=== PATIENT | male | born 1955 | race Caucasian/White ===

== ENCOUNTER 2022-04-30 17:59 | Inpatient (IN) | payer MEDICARE ==
[~2022-04-30] VITALS: Ht 185.4 cm; Wt 112.0 kg
[~2022-04-30 17:59] MED LIST: CRANBERRY CONC500 MG PO; DAZIDOX20 MG PO; DETROL LA4 MG PO; FIBERCON625 MG PO; LIORESAL 1010 MG/TAB PO; MEN'S MULTIVITA1 TAB PO; NEURONTIN800 MG/TAB PO; OXYCONTIN ER40 MG PO; SENOKOT8.6 MG
[2022-04-30] MEDS ORDERED: AMOXICILLIN 8751 TAB PO (19:33)
[2022-04-30] MEDS ORDERED: COUMADIN 3MG3 MG/TAB PO ×2 (19:34→23:13)
[2022-04-30] MEDS ORDERED: DAZIDOX10 MG (19:34)
[2022-04-30] MEDS ORDERED: PROTONIX 40MG T40 MG PO (19:35)
[2022-04-30] MEDS ORDERED: MAG-OX 400400 MG/TAB PO (19:35)
[2022-04-30] MEDS ORDERED: RENA-VITE RX1 TAB PO (19:36)
[2022-04-30] MEDS ORDERED: VITAMIN D 50,1.25 MG (19:37)
[2022-04-30] MEDS ORDERED: PROAMATINE 5MG T5 MG PO (19:38)
[2022-04-30] MEDS ORDERED: ZOFRAN 4MG T4 MG/TAB PO (19:38)
[2022-04-30] MEDS ORDERED: MELATONIN5 M1 PO (19:39)
[2022-04-30] MEDS ORDERED: COUMADIN 2MG2 MG/TAB (19:39)
[2022-04-30 20:19] VITALS: BP 101/62; PULSE 86; TEMP 99.9
--- NOTE | 2022-04-30 21:02 | NUR ---
Spoke with Leti at [facility] for labs for patient. Labs to be faxed to surgical fax machine.
[2022-04-30] MEDS ORDERED: ERGOCALCIFER50000 IU PO (22:59)
[2022-04-30] MEDS ORDERED: MYRBETR50MG PO (23:03)
[2022-04-30] MEDS ORDERED: SENOKOT S 50 MG1 TAB PO (23:04)
[2022-04-30] MEDS ORDERED: MULTI VITAMINS1 TAB PO (23:06)
[2022-04-30] MEDS ORDERED: VITAMIN C500 MG PO (23:06)
[2022-04-30] MEDS ORDERED: CRANRX500 MG PO (23:07)
[2022-04-30] MEDS ORDERED: PHARMASSURE ZIN50 MG PO (23:09)
[2022-04-30] MEDS ORDERED: MOTRIN 400400 MG/TAB PO (23:10)
[2022-04-30] MEDS ORDERED: MIRALAX PA17 GM/Dose PO (23:10)
[2022-04-30 23:58] VITALS: BP 106/62; PULSE 89; TEMP 99.7
[2022-05-01] VITALS (9 sets, daily range): BP systolic 17–174; BP diastolic 67–98; PULSE 79–97; TEMP 98.4–99.8
[2022-05-01 00:30] LABS: ALBUMIN 2.5 gm/dL (3.4-4.8); BILIRUBIN,TOTAL 0.6 mg/dL (0.2-1.2); CALCIUM 8.5 mg/dL (8.4-10.2); CREATININE, serum 0.67 mg/dL (0.72-1.25); POTASSIUM 3.6 mmol/L (3.5-4.5); TOTAL PROTEIN 6.2 gm/dL (6.2-8.1)
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
--- NOTE | 2022-05-01 02:29 | NUR ---
Vancomycin Initial Dosing Pharmacy Note Ordering provider: Octavio Buchanan MD Indication/duration: Septic knee X 7 days Relevant comorbidities: LABS: SCr = 0.67 (Capped at 0.8) Recommendation: Will draw troughs and follow levels. Loading dose: 2 grams Maintenance dose: 1.5 grams every 12 hours Trough goal: 15-20 ug/mL
[2022-05-01 06:34] LABS: BASO % 0.3 % (0.0-2.0); EOS # 0.2 K/mm3 (0.0-0.7); EOS % 1.5 % (0.0-4.0); GRAN # 8.1 K/mm3 (1.4-6.5); GRAN % 81.1 % (42.2-75.2); LYMPH # 0.8 K/mm3 (1.2-3.4); LYMPH % 7.8 % (20.0-51.0); MEAN CELL VOLUME 75 fl (80.0-100.0); MEAN CORPUSCULAR HGB CONC 32 g/dl (33.0-37.0); MEAN PLATELET VOLUME 10.4 fl (7.4-10.4); MONO # 0.9 K/mm3 (0.1-0.6); MONO % 8.8 % (1.7-9.3); PLATELET COUNT 314 K/mm3 (130-400); RED BLOOD COUNT 3.96 M/mm3 (4.20-5.60); REDCELL DISTRIBUTION WIDTH-CV 15.2 % (11.5-14.5)
[2022-05-01 06:37] LABS: HEMATOCRIT 29.5 % (42.0-52.0); HEMOGLOBIN 9.3 g/dl (13.5-18.0); MEAN CORPUSCULAR HEMOGLOBIN 23 pg (27-31)
[2022-05-01 06:45] LABS: INR 2.5 (0.8-3.0); PROTHROMBIN TIME 28.9 SECONDS (9.7-12.8)
[2022-05-01 06:47] LABS: CALCIUM 8.4 mg/dL (8.4-10.2); CREATININE, serum 0.64 mg/dL (0.72-1.25); POTASSIUM 3.7 mmol/L (3.5-4.5)
--- NOTE | 2022-05-01 12:07 | NUR ---
CALLED HAIR BALER TO INFORM HER PER INFECTIOUS DISEASE DOCTOR HE IS OFF UNTIL THE April.
--- NOTE | 2022-05-01 12:20 | NUR ---
Initial visit: Tank Furnace Operator stopped by room on rounds. Pt was resting and content with sister in the room. Pt has no needs right now. Tank Furnace Operator prayed with pt and sister. Tank Furnace Operator will follow up as needed.
--- NOTE | 2022-05-01 13:00 | NUR ---
PATIENT ARRIVED FROM PACU IN STABLE CONDITION. NO NEEDS OR COMPLAINTS AT THIS TIME. PATIENT TRANSFERRED TO SPECIALTY BED. ATTEMPTED TO PLACE IT TO DO TURNS, PATIENT REFUSED. MATTRESS IS AIRED UP. SUPRAPUBIC CATHETER RESECURED TO R LEG PER PATIENTS SPECIFIC REQUEST. CALL LIGHT WITH IN REACH. IVF INFUSING. IV ANTX INFUSING. PHARM TO BE CALLED FOR RETIMING.
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
--- NOTE | 2022-05-01 21:02 | NUR ---
Patient A/O, head to toe assessment done, see shift assessment, rates his neck pain at 9/10, oxycodone given, refused to turn at this time and unable to check his bottom, patient said he is comfortable, will try to turn him at midnight as planned, patient agreeable to it, denies further needs, call light and personal items within reach, will continue to monitor.
--- NOTE | 2022-05-01 23:55 | NUR ---
Repositoned patient to his right side, mepilex dressing to bottom clean, dry and intact, will continue to monitor.
[2022-05-02] VITALS (9 sets, daily range): BP systolic 106–172; BP diastolic 62–91; PULSE 73–85; TEMP 97.7–98.9
[2022-05-02 00:38] LABS: COLLECTION METHOD IN
[2022-05-02 00:53] LABS: PH 6.5 (5.0-8.5); URINE APPEARANCE Clear (CLEAR/HAZY); URINE BLOOD TRACE-INTACT (NEGATIVE); URINE COLOR Yellow (YELLOW); URINE GLUCOSE Negative (NEGATIVE); URINE KETONE Negative (NEGATIVE); URINE NITRATE Negative (NEGATIVE); URINE PROTEIN(semi-quant) 1+ (NEGATIVE); URINE UROBILINOGEN 0.2 E.U/dL (0.2-1.0)
[2022-05-02 00:56] LABS: MUCOUS Present (NOT PRESENT); SQUAMOUS EPITHELIAL None Seen /hpf (0-10); URINE BACTERIA Rare /hpf (NONE SEEN); URINE RBC 20-50 /hpf (0-2)
--- NOTE | 2022-05-02 03:24 | NUR ---
Called Cami, the PA for gram positive cocci, no new orders received at this time.
--- NOTE | 2022-05-02 03:43 | NUR ---
Repositioned patient to his left side, dressing changed with aquacel, gauze and mepilex, noted scant amount of drainage.
--- NOTE | 2022-05-02 06:18 | NUR ---
Patient repositioned to his left side, denies further needs, will report off to dayshift nurse.
[2022-05-02 09:23] LABS: INR 2.6 (0.8-3.0); PROTHROMBIN TIME 30.7 SECONDS (9.7-12.8)
--- NOTE | 2022-05-02 11:40 | NUR ---
PATIENTS WOULD DRESSING REMOVED FOR MRI.
--- NOTE | 2022-05-02 12:30 | NUR ---
PATIENT BACK FROM MRI. NAZANINTENT IS AWAKE AND ALERT, DENEIS ANY PAIN. BED BATH AND CATH CARE PROVIDED, LINENS CHANGED, WOUND CARE AND DRESSINGS PROVIDED. PICC LINE PATENT.
--- NOTE | 2022-05-02 20:15 | NUR ---
Patient assessed at this time, head to toe assessment done, see shift assessment, denies pain, called Isak Vick at 2031 d/t patient's blood pressure is high, received a PRN order for hydralazine, repositioned to his left at this time, denies further needs, call light and personal items within reach, will continue to monitor.
[2022-05-03] VITALS (7 sets, daily range): BP systolic 92–179; BP diastolic 57–95; PULSE 66–88; TEMP 97.6–98.4
--- NOTE | 2022-05-03 00:21 | NUR ---
Patient's BP is 179/93, apresoline given as ordered PRN, repositioned patient to his right side, IV antibiotics given at this time as well through his PICC line, both lumens flushes well with good blood return.
--- NOTE | 2022-05-03 01:45 | NUR ---
Nava, the PA made aware about the MRI of pelvis result.
--- NOTE | 2022-05-03 02:45 | NUR ---
Repositioned patient to his left side, denies further needs.
--- NOTE | 2022-05-03 05:03 | NUR ---
Repositioned patient to his right side.
--- NOTE | 2022-05-03 08:15 | NUR ---
PATIENT AWAKE AND ALERT, RESTING IN BED. COLOSTOMY BAG AND WAFER CHANGED OUT TO PATIENTS SATISFACTION. PATIENT DENEIS ANY OTHER NEEDS OR COMPLAINTS AT THIS TIME. IV ANTX HUNG BY NIGHT RN INFUSING. OTHER LINE OF PICC PATENT. CALL LIGHT WITHIN REACH. SUPERPUBIC CATHETER IN PLACE. PATIENTS SISTER AT BEDSIDE.
[2022-05-03 11:04] LABS: MEAN CELL VOLUME 75 fl (80.0-100.0); MEAN CORPUSCULAR HGB CONC 31 g/dl (33.0-37.0); MEAN PLATELET VOLUME 9.1 fl (7.4-10.4); PLATELET COUNT 398 K/mm3 (130-400); RED BLOOD COUNT 3.87 M/mm3 (4.20-5.60); REDCELL DISTRIBUTION WIDTH-CV 15.2 % (11.5-14.5)
[2022-05-03 11:08] LABS: CALCIUM 8.5 mg/dL (8.4-10.2); CREATININE, serum 0.68 mg/dL (0.72-1.25); POTASSIUM 3.3 mmol/L (3.5-4.5)
[2022-05-03 11:15] LABS: HEMOGLOBIN 9.1 g/dl (13.5-18.0); MEAN CORPUSCULAR HEMOGLOBIN 24 pg (27-31)
--- NOTE | 2022-05-03 16:27 | NUR ---
[facility] CONTACTED AND ARE TO FAX OVER PATIENTS CULTURE RESULTS FROM [facility].
--- NOTE | 2022-05-03 16:49 | NUR ---
FURMAN FAXED RESULTS FROM [facility]. DR LAZARO NOTIFIED RESULTS ON CHART.
--- NOTE | 2022-05-03 18:30 | NUR ---
PATIENT AWAKE AND ALERT, RESTING IN BED. THIS RN SET UP PATIENT FOR DINNER. COLOSTOMY BAG AND WAFER WERE CHANGED. CATHETER CARE PROVIDED FOR PATIENTS SUPRABUBIC CATHETER. PATIENT REPOSITIONED. PATIENT DENEIS ANY FURTHER NEEDS OR COMPLAINTS AT THIS TIME.
--- NOTE | 2022-05-03 20:42 | NUR ---
Patient assessed at this time, see shift assessment, denies pain or discomfort at this time, HS meds given, denies further needs, call light and personal items within reach, will continue to monitor.
[2022-05-04] VITALS (7 sets, daily range): BP systolic 134–187; BP diastolic 78–98; PULSE 60–80; TEMP 97.6–98.4
--- NOTE | 2022-05-04 | NUR ---
Repositioned patient to his left side.
--- NOTE | 2022-05-04 10:39 | NUR ---
Patient resting in bed awake and family members at the bedside. Duane wrap dressing on right knee intact. Suprapubic catheter draining yellow urine in bag. Colostomy intact with air in bag. Deflated some air from the bag. Dressing changed at sacral area , am care given, linens changed and repositioned patient to the left side.
[2022-05-05] VITALS: BP 159/85; PULSE 88; TEMP 97.7
--- NOTE | 2022-05-05 00:19 | NUR ---
THIS NURSE IN TO DO SHIFT ASSESSMENT ON PATIENT. PATIENT APPEARS TO VERY DROWSY AND WAKES UP BUT IMMEDIATELY FALLS BACK TO SLEEP. THIS NURSE ATTEMPTED TO GIVE PATIENT HIS ORAL MEDICATIONS BUT PATIENT TO DROWSY TO TAKE MEDICATIONS. PATIENT REPOSITIONED AT THIS TIME AND WOUNDS ASSESSED. PATIENT ABLE TO DENY PAIN AT THIS TIME. NO FURTHER QUESTIONS OR CONCERNS FROM PATIENT. CALL LIGHT WITHIN REACH
[2022-05-05 04:01] VITALS: BP 165/90; PULSE 84; TEMP 97.9
[2022-05-05 06:38] LABS: INR 3.7 (0.8-3.0); PROTHROMBIN TIME 42.7 SECONDS (9.7-12.8)
[2022-05-05 07:30] VITALS: BP 168/87; PULSE 73; TEMP 97.8
--- NOTE | 2022-05-05 08:00 | NUR ---
Pt. laying in bed at this time. Pt. is less responsive this am. Pt.'s sister at bedside. Pt. is very drowsey, will open eyes and speak to this nurse but does not answer questions at all. Pt. does repeat "I'm Ronny, I'm Ronny" Pt. at this time does not respond to his sister either. Dr. Buchanan notified, new orders in. Will continue to monitor.
[2022-05-05 12:00] VITALS: BP 155/92; PULSE 85; TEMP 97
[2022-05-05 13:44] LABS: BASO % 0.3 % (0.0-2.0); EOS # 0.3 K/mm3 (0.0-0.7); GRAN # 11.1 K/mm3 (1.4-6.5); GRAN % 83.4 % (42.2-75.2); LYMPH # 0.9 K/mm3 (1.2-3.4); MEAN CELL VOLUME 76 fl (80.0-100.0); MEAN CORPUSCULAR HGB CONC 31 g/dl (33.0-37.0); MEAN PLATELET VOLUME 9.1 fl (7.4-10.4); MONO # 0.9 K/mm3 (0.1-0.6); MONO % 6.7 % (1.7-9.3); PLATELET COUNT 431 K/mm3 (130-400); RED BLOOD COUNT 3.89 M/mm3 (4.20-5.60); REDCELL DISTRIBUTION WIDTH-CV 15.8 % (11.5-14.5)
[2022-05-05 13:45] LABS: HEMATOCRIT 29.6 % (42.0-52.0); HEMOGLOBIN 9.1 g/dl (13.5-18.0); MEAN CORPUSCULAR HEMOGLOBIN 23 pg (27-31)
[2022-05-05 13:52] LABS: CREATININE, serum 1.88 mg/dL (0.72-1.25); POTASSIUM 3.4 mmol/L (3.5-4.5)
[2022-05-05 15:51] VITALS: BP 161/94; PULSE 66; TEMP 97
--- NOTE | 2022-05-05 16:30 | NUR ---
Patient scheduled telehealth visit with Dr. No, Infectious Disease. Pt consents to visit. Pts sister in the room during visit, pts spouse on the phone talking with Dr. No. Equipment set up, audio and video connections established. Visit conducted by . No technical concerns or issues.
--- NOTE | 2022-05-05 16:55 | NUR ---
Holter Technician spoke with Hospitalist who advised patient will likely need IV antibiotics at time of discharge. FLAKO contacted patient's , Ayana who advised patient is not doing as well today and was likely not able to be discharged. Ayana is on her way from [place] and will arrive at the hospital this evening. Ayana advised they have done home antibiotics in the past. FLAKO spoke with RN who advised patient is not alert and oriented, which is a change for him. Patient will not discharge today. SW was approached by patient's sister in law who has been at bedside until Ayana can arrive. MELODIE advised they would like to use [facility] at discharge for any IV antibiotic needs. FLAKO was contacted by Bill at [facility] (ph#[phone]) who requested records. FLAKO to send tomorrow.
--- NOTE | 2022-05-05 17:45 | NUR ---
Suprapubic wilson catheter changed out at this time per protocol.
[2022-05-05 20:30] VITALS: BP 147/88; PULSE 78; TEMP 97.7
--- NOTE | 2022-05-05 22:53 | NUR ---
THIS NURSE IN TO DO SHIFT ASSESSMENT AND NIGHT TIME MEDICATION ON PATIENT. PATIENT APPEARS DROWSY BUT EASILY AWAKENED. PATIENT ORIENTATED TO SELF AT THIS TIME. WHEN ASKED IF PATIENT KNEW IF HE WAS IN THE HOSPITAL PATIENT RESPONDED WITH YES. THIS NURSE ASKED PATIENT TO TAKE HIS ORAL NIGHT TIME MEDICATION. PATIENT RESPONDED WITH YES MA'AM BUT WOULD MOVE WHEN ATTEMPED TO GIVE PATIENT HIS MEDS. PATIENT UNABLE TO TAKE MEDICATIONS AT THIS TIME. NO FURTHER QUESTIONS OR CONCERNS NOTED AT THIS TIME. CALL LIGHT WITHIN REACH
[2022-05-06] VITALS (8 sets, daily range): BP systolic 115–174; BP diastolic 66–99; PULSE 64–93; TEMP 97.3–98.2
[2022-05-06 05:23] LABS: BASO # 0.1 K/mm3 (0.0-0.2); BASO % 0.4 % (0.0-2.0); EOS # 0.3 K/mm3 (0.0-0.7); EOS % 2.2 % (0.0-4.0); GRAN # 12.5 K/mm3 (1.4-6.5); GRAN % 84.1 % (42.2-75.2); LYMPH # 0.9 K/mm3 (1.2-3.4); LYMPH % 6.2 % (20.0-51.0); MEAN CELL VOLUME 77 fl (80.0-100.0); MEAN CORPUSCULAR HGB CONC 30 g/dl (33.0-37.0); MEAN PLATELET VOLUME 8.9 fl (7.4-10.4); MONO # 0.9 K/mm3 (0.1-0.6); MONO % 6.2 % (1.7-9.3); PLATELET COUNT 381 K/mm3 (130-400); REDCELL DISTRIBUTION WIDTH-CV 15.9 % (11.5-14.5)
[2022-05-06 05:24] LABS: INR 4.1 (0.8-3.0)
[2022-05-06 05:34] LABS: HEMATOCRIT 29.2 % (42.0-52.0); HEMOGLOBIN 8.8 g/dl (13.5-18.0); MEAN CORPUSCULAR HEMOGLOBIN 23 pg (27-31)
[2022-05-06 05:35] LABS: ALBUMIN 2.4 gm/dL (3.4-4.8); CALCIUM 8.2 mg/dL (8.4-10.2); CREATININE, serum 2.61 mg/dL (0.72-1.25); MAGNESIUM 2.1 mg/dL (1.6-2.6); PHOSPHOROUS 4.4 mg/dL (2.3-4.7); POTASSIUM 3.2 mmol/L (3.5-4.5)
--- NOTE | 2022-05-06 09:00 | NUR ---
Pt. laying in bed. at bedside. Pt. continues to be confused. PICC to lt. upper arm, IV fluids infusing per orders. Pt. and deny needs at this time. Call light within reach.
--- NOTE | 2022-05-06 10:11 | NUR ---
Assessment completed. Patient alert but not oriented. Patient breath sounds clear in all perea. Heart rate is regular sinus on telemetry. Patient hypertensive this morning with blood pressure of 174/99, primary RN able to give prn medication. Blood pressure rechecked at 0900 read 164/98. Left upper arm PICC site clean, dry and intact axel wrapped. Colostomy clean, intact with loose stool present. Suprapubic cath insertion site clean with no drainage or reddening. AXEL wrap to right knee clean, dry and intact. Right foot non-pitting edema. Feet dry and flaky. SCDs and compression socks on. Boots on feet to elevate heels off bed. Patient unable to take medications this morning due to anxious state. Head of Bed semi-fowlers
--- NOTE | 2022-05-06 15:50 | NUR ---
Telehealth visit conducted with Dr. Irwin No, Infectious Disease. Patient consented unable to consent due to condition. present and consented. Had previous discussion with Dr. No via telephone. Telecommunication initiated without any difficulties during exam. All questions were answered by Dr. No
--- NOTE | 2022-05-06 16:31 | NUR ---
Selling Underwriter faxed referral to [facility].
--- NOTE | 2022-05-06 17:32 | NUR ---
Pt. continues to be minimally responsive. Pt. will respond to voice, but does not respond appropriatly. Vitals stable. Abxs infusing per orders. Pt. resting comfortably, respirations are equal and unlabored
[2022-05-06 19:46] LABS: CLOSTRIDIUM DIFF A/B NEG
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
[2022-05-07 04:06] VITALS: BP 118/65; PULSE 75; TEMP 98.3
[2022-05-07 04:52] LABS: BASO % 0.2 % (0.0-2.0); EOS # 0.3 K/mm3 (0.0-0.7); EOS % 2.1 % (0.0-4.0); GRAN # 10.5 K/mm3 (1.4-6.5); GRAN % 83.3 % (42.2-75.2); LYMPH % 8.2 % (20.0-51.0); MEAN CELL VOLUME 77 fl (80.0-100.0); MEAN CORPUSCULAR HGB CONC 30 g/dl (33.0-37.0); MEAN PLATELET VOLUME 8.8 fl (7.4-10.4); MONO # 0.7 K/mm3 (0.1-0.6); MONO % 5.4 % (1.7-9.3); PLATELET COUNT 322 K/mm3 (130-400); RED BLOOD COUNT 3.15 M/mm3 (4.20-5.60)
[2022-05-07 05:03] LABS: HEMATOCRIT 24.3 % (42.0-52.0); HEMOGLOBIN 7.3 g/dl (13.5-18.0); MEAN CORPUSCULAR HEMOGLOBIN 23 pg (27-31)
[2022-05-07 05:15] LABS: INR 5.1 (0.8-3.0); PROTHROMBIN TIME 59.2 SECONDS (9.7-12.8)
[2022-05-07 05:17] LABS: ALBUMIN 1.9 gm/dL (3.4-4.8); CALCIUM 7.1 mg/dL (8.4-10.2); CREATININE, serum 2.85 mg/dL (0.72-1.25); MAGNESIUM 1.8 mg/dL (1.6-2.6); PHOSPHOROUS 4.1 mg/dL (2.3-4.7)
--- NOTE | 2022-05-07 05:17 | NUR ---
CALLED CRITICAL INR OF 5.1, PT OF 59.2 AND HGB OF 7.3 TO HOSPITALIST WHO WILL REVIEW CHART AND ENTER ORDERS ACCORDINGLY.
[2022-05-07 05:28] LABS: POTASSIUM 2.9 mmol/L (3.5-4.5)
--- NOTE | 2022-05-07 05:30 | NUR ---
K+ OF 2.9, HOSPITALIST AWARE, IV POTASSIUM GIVEN PER PROTOCOL. SEE ADDITIONAL ORDERS FOR LAB RECHECK
[2022-05-07 07:35] VITALS: BP 133/74; PULSE 74; TEMP 97.4
--- NOTE | 2022-05-07 09:43 | NUR ---
Pt. given Aqua-Mephyton, started at 0933. This nurse remained at bedside during infusion. No s/s of reaction noted, Vitals stable.
--- NOTE | 2022-05-07 10:01 | NUR ---
Patient assessment completed. Patient alert but not orientated. Patien verbal communication declining. Patient heart rate normal at 74bpm. Patient breath sounds clear in all perea. Patient still very anxious this morning and refusing to take medication and oral intake of fluids and food. PICC to left upper arm infusing with normal saline solution at 100ml/hr. PICC clear with no drainage or reddness axel wrapped. Left hand edema non-pitting, elevated on pillow. Bowel sounds active in all 4 quadrants. Colostomy clean and intact, loose stools. Suprapubic cath clean with no reddening or drainage, cath care provided. AXEL wrap to Right Knee still clean, dry and intact, incision has no redness or drainage. Right foot non-pitting edema. Right leg elevated to relieve pressure. Patient called out pain informed primary RN, when attempted to administer patient refused medication. Patient head of bed semi fowlers with legs raised.
[2022-05-07 10:30] LABS: HEMATOCRIT 25.6 % (42.0-52.0); HEMOGLOBIN 7.8 g/dl (13.5-18.0)
[2022-05-07 11:00] VITALS: BP 122/69; PULSE 73; TEMP 97
[2022-05-07 11:44] LABS: POTASSIUM 3.2 mmol/L (3.5-4.5)
[2022-05-07 11:56] LABS: CALCIUM 7.3 mg/dL (8.4-10.2); CREATININE, serum 2.89 mg/dL (0.72-1.25); PHOSPHOROUS 4.2 mg/dL (2.3-4.7)
--- NOTE | 2022-05-07 13:20 | NUR ---
Certified Wellness Program Manager spoke with Hospitalist who advised he spoke with patient and his , Ayana about goals of care and possible referral to [facility]. Ayana to think on this and discuss with family and Hospitalist will follow up tomorrow.
--- NOTE | 2022-05-07 16:20 | NUR ---
Patient scheduled telehealth visit with Dr. No, Infectious Disease, pt unable to give consent. present in room to give consent. Equipment set up, audio and video connections established. Visit conducted by MD. No technical concerns or issues. All questions asked by and answered by Dr. No. Nurse present in room to answer questions.
[2022-05-07 16:46] VITALS: BP 117/77; PULSE 68; TEMP 98.3
[2022-05-07 17:47] LABS: INR 2.1 (0.8-3.0)
[2022-05-07 19:29] VITALS: BP 128/67; PULSE 93; TEMP 97.7
--- NOTE | 2022-05-07 23:09 | NUR ---
PATIENT ASSESSED AND GIVEN NIGHTLY IV MEDICATIONS, HE IS UNABLE TO SWALLOW WATER LET ALONE MEDICATIONS. SUPRAPUBIC CATHETER IN PLACE WITH MINIMAL OUTPUT. COLOSTOMY WITH LITTLE TO NO OUTPUT BUT IS LOOSE IN NATURE. PT/OT/ST ORDERED. FAMILY DISCUSSING AGGRESSIVE CARE VERSUS PALLIATIVE/HOSPICE ROUTE. PICC IN PAT FLUSHES AND HAD BLOOD RETURN IN BOTH LUMENS. MULTIPLE DIFFERENT WOUNDS NOTED, SEE ASSESSMENT. D5 1/2 NS @75ML/HR. CREA-2.89. K-3.8. BED IN LOWEST POSITION. CALL LIGHT IN REACH.
[2022-05-08 00:01] VITALS: BP 137/77; PULSE 92; TEMP 98
[2022-05-08 03:44] VITALS: BP 106/73; PULSE 86; TEMP 98.6
[2022-05-08 07:15] VITALS: BP 137/77; PULSE 89; TEMP 98
[2022-05-08 07:23] LABS: BASO % 0.2 % (0.0-2.0); EOS # 0.2 K/mm3 (0.0-0.7); GRAN # 14.8 K/mm3 (1.4-6.5); GRAN % 87.1 % (42.2-75.2); LYMPH # 0.9 K/mm3 (1.2-3.4); LYMPH % 5.2 % (20.0-51.0); MEAN CELL VOLUME 75 fl (80.0-100.0); MEAN CORPUSCULAR HGB CONC 31 g/dl (33.0-37.0); MEAN PLATELET VOLUME 8.8 fl (7.4-10.4); MONO # 0.9 K/mm3 (0.1-0.6); MONO % 5.4 % (1.7-9.3); PLATELET COUNT 385 K/mm3 (130-400); RED BLOOD COUNT 3.68 M/mm3 (4.20-5.60)
[2022-05-08 07:28] LABS: HEMATOCRIT 27.6 % (42.0-52.0); HEMOGLOBIN 8.6 g/dl (13.5-18.0); MEAN CORPUSCULAR HEMOGLOBIN 23 pg (27-31)
[2022-05-08 07:29] LABS: INR 1.4 (0.8-3.0); PROTHROMBIN TIME 15.8 SECONDS (9.7-12.8)
--- NOTE | 2022-05-08 07:30 | NUR ---
24 HOUR URINE BEGAN. PATIENT RESTING IN BED. PATIETN OPENED EYES TO HIS NAME. PATIENT MAKING SOME NOISES, NO VERBAL RESPONSE TO QUESTIONS. SHALLOWED BREATHS. PATIENTS SUPRAPUBIC CATH AND COLOSTOMY PATENT. IVF INFUSING PER ORDER, PICC LINE PATENT.
[2022-05-08 07:36] LABS: ALBUMIN 2.1 gm/dL (3.4-4.8); CREATININE, serum 3.5 mg/dL (0.72-1.25); MAGNESIUM 1.9 mg/dL (1.6-2.6); PHOSPHOROUS 3.9 mg/dL (2.3-4.7); POTASSIUM 3.3 mmol/L (3.5-4.5)
[2022-05-08 11:42] VITALS: BP 161/87; PULSE 90; TEMP 97.5
--- NOTE | 2022-05-08 12:02 | NUR ---
PATIENT RESTING IN BED. OPENS EYES TO NAME. DRESSING CHANGE COMPLETE. PATIETN REPOSITIONED. SUPRAPUBIC CATH BAG AND JUG STILL ON ICE. CALL LIGHT WITHIN REACH. FAMILY AT BEDSIDE.
--- NOTE | 2022-05-08 12:46 | NUR ---
Blanket Binder collaborated with Hospitalist who advised patient's , Ayana would like to speak with the [facility] about potential discharge there. Plan for now is to continue with care, however is interested in hospice for discharge planning. FLAKO met with Ayana and confirmed the above. Ayana would like to speak with the [facility] about their facility and also wanted information about home hospice as an alternative option. FLAKO contacted Orlin at [facility] and gave referral. Orlin to reach out to Ayana today.
--- NOTE | 2022-05-08 14:00 | NUR ---
Telehealth visit conducted with Dr. Irwin No, Infectious Disease. Service Order Dispatcher initiated without any difficulties during exam. Patients nurse present to assist with questions from Dr. No. All questions were answered by Dr. No.
[2022-05-08 16:00] VITALS: BP 130/79; PULSE 72; TEMP 97.9
--- NOTE | 2022-05-08 19:24 | NUR ---
RECEIVED CHANGE OF SHIFT REPORT FROM DAY SHIFT RN.
[2022-05-08 19:36] VITALS: BP 132/72; PULSE 75; TEMP 97.5
--- NOTE | 2022-05-08 22:45 | NUR ---
PATIENT ONLY TOLERATED1 SMALL SPOONFUL OF MED WITH APPLESAUCE THEN REFUSED TO TAKE ANY MORE ORAL INTAKE THEN OBSERVED PATIENT DRY HEAVING WITH PATIENT CALLING OUT "I DON'T WANT TO", SEE MAR FOR MEDS GIVEN TO NAUSEA, SET UP ORAL SUCTION WITH PATIENT ATTEMPTING TO VOMIT MEDS WERE GIVEN. PATIENT DID NOT VOMIT BUT LEFT ORAL SUCTION SET UP IN PLACE PROPHYLACTICALLY
[2022-05-09 00:53] VITALS: BP 114/58; PULSE 85; TEMP 97.8
[2022-05-09 04:44] VITALS: BP 122/65; PULSE 70; TEMP 98.6
[2022-05-09 06:11] LABS: BASO % 0.3 % (0.0-2.0); EOS # 0.3 K/mm3 (0.0-0.7); GRAN # 13.2 K/mm3 (1.4-6.5); GRAN % 85.5 % (42.2-75.2); LYMPH # 0.9 K/mm3 (1.2-3.4); LYMPH % 5.7 % (20.0-51.0); MEAN CELL VOLUME 75 fl (80.0-100.0); MEAN CORPUSCULAR HGB CONC 31 g/dl (33.0-37.0); MEAN PLATELET VOLUME 9.2 fl (7.4-10.4); MONO # 0.8 K/mm3 (0.1-0.6); MONO % 5.4 % (1.7-9.3); PLATELET COUNT 325 K/mm3 (130-400); RED BLOOD COUNT 3.57 M/mm3 (4.20-5.60); REDCELL DISTRIBUTION WIDTH-CV 16.2 % (11.5-14.5)
[2022-05-09 06:14] LABS: HEMATOCRIT 26.7 % (42.0-52.0); HEMOGLOBIN 8.3 g/dl (13.5-18.0); MEAN CORPUSCULAR HEMOGLOBIN 23 pg (27-31)
[2022-05-09 06:22] LABS: CREATININE, serum 3.41 mg/dL (0.72-1.25); MAGNESIUM 1.8 mg/dL (1.6-2.6); PHOSPHOROUS 3.6 mg/dL (2.3-4.7); POTASSIUM 3.2 mmol/L (3.5-4.5)
--- NOTE | 2022-05-09 07:12 | NUR ---
CHANGE OF SHIFT REPORT GIVEN TO DAY SHIFT RNLORI.
--- NOTE | 2022-05-09 07:18 | NUR ---
Received shift report from the night nurse, Kimmy ALTMAN and resume care.
[2022-05-09 07:42] VITALS: BP 136/86; PULSE 68; TEMP 98.6
[2022-05-09 08:16] LABS: URINE TOTAL VOLUME - 24 HRS 1425 mL/24 hr
[2022-05-09 08:17] LABS: CREATININE, serum 3.41 mg/dL (0.72-1.25)
[2022-05-09 08:38] LABS: PROTEIN, TOTAL URINE random 18 mg/dL
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
--- NOTE | 2022-05-09 12:54 | NUR ---
Warfarin Initial Dosing Pharmacy Note Ordering Provider: Octavio Buchanan MD Indication: VTE/PE Treatment LABS: INR 1.4 Recommendation: Will start Warfarin 4 mg po qHS. Pharmacy will continue to closely monitor daily INR levels. Home Regimen: Warfarin 6 mg po [id number] and Warfarin 3 mg po Fr
[2022-05-09 13:32] VITALS: BP 105/53; PULSE 76; TEMP 98.1
--- NOTE | 2022-05-09 13:41 | NUR ---
This nurse was notified that patient is experiencing chest pain. Nurse attened to patient , VSS O2 sat 98% RA. Patient alert and able to talk. Patient not in any distress, not diaphoretic, or clammy. Dr. Montoya was notified and came to assess patient. EKG and chest X-ray per orders. Family at the bedside.
[2022-05-09 15:39] VITALS: BP 92/62; PULSE 75; TEMP 97
--- NOTE | 2022-05-09 15:56 | NUR ---
Patient reports of severe neck pain, roxicodone administered at 1545. See e-mar notes.
--- NOTE | 2022-05-09 16:24 | NUR ---
Solderer Dipper spoke with patient's , Ayana who advised patient has made improvements over last 24 hours, which has changed the plan of care. Patient is no longer seeking hospice, but wants to continue aggressive cares. Ayana advised patient has been to [facility] in the past and that would be their first preference for LTACH. FLAKO faxed referral to [facility]. [facility] #[phone] ext [phone] fax#[phone]
[2022-05-09 19:42] VITALS: BP 123/72; PULSE 100; TEMP 98.5
--- NOTE | 2022-05-09 20:50 | NUR ---
Patient assessed at this time, head to toe assessment done, see shift assessmenyt, able to tell his date of and where he is, unable to tell the date and time, HS meds given crushed with apple sauce without any problem, dressing to coccyx CDI, left posterior thigh dressign CDI, with colostomy bag and suprapubic catheter draining well, denies pain, denies further needs at this time, call light and personal items within reach, will continue to monitor.
--- NOTE | 2022-05-09 22:22 | NUR ---
Patient complained of neck and head pain, rated it as 9/10, oxycodone given as ordered, repositioned patient on his right side, needs attended, will continue to monitor.
[2022-05-10] VITALS (10 sets, daily range): BP systolic 92–116; BP diastolic 49–72; PULSE 43–71; TEMP 96.3–98.6
--- NOTE | 2022-05-10 02:48 | NUR ---
Repositioned patient to his left side, IV merrem given at this time.
--- NOTE | 2022-05-10 04:50 | NUR ---
Patient continues to be confused, he said "i wanna know her name", this nurse reorientated the patient, respirations even and unlabored, will continue to monitor.
--- NOTE | 2022-05-10 05:50 | NUR ---
Patient complained of headache, oxycodone given, offered ice pack but refused, will continue to monitor.
[2022-05-10 06:37] LABS: BASO % 0.2 % (0.0-2.0); EOS # 0.4 K/mm3 (0.0-0.7); EOS % 3.3 % (0.0-4.0); GRAN # 10.2 K/mm3 (1.4-6.5); GRAN % 81.7 % (42.2-75.2); LYMPH % 8.3 % (20.0-51.0); MEAN CELL VOLUME 76 fl (80.0-100.0); MEAN CORPUSCULAR HGB CONC 30 g/dl (33.0-37.0); MEAN PLATELET VOLUME 9.7 fl (7.4-10.4); MONO # 0.7 K/mm3 (0.1-0.6); MONO % 5.4 % (1.7-9.3); PLATELET COUNT 283 K/mm3 (130-400); RED BLOOD COUNT 3.32 M/mm3 (4.20-5.60); REDCELL DISTRIBUTION WIDTH-CV 16.4 % (11.5-14.5)
[2022-05-10 06:39] LABS: INR 1.5 (0.8-3.0); PROTHROMBIN TIME 17.5 SECONDS (9.7-12.8)
[2022-05-10 06:40] LABS: HEMATOCRIT 25.2 % (42.0-52.0); HEMOGLOBIN 7.5 g/dl (13.5-18.0); MEAN CORPUSCULAR HEMOGLOBIN 23 pg (27-31)
[2022-05-10 06:49] LABS: ALBUMIN 1.9 gm/dL (3.4-4.8); C-REACTIVE PROTEIN 5.66 mg/dL (0.00-0.50); CREATININE, serum 3.2 mg/dL (0.72-1.25); MAGNESIUM 1.7 mg/dL (1.6-2.6); PHOSPHOROUS 3.5 mg/dL (2.3-4.7); POTASSIUM 3.2 mmol/L (3.5-4.5)
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
--- NOTE | 2022-05-10 12:09 | NUR ---
Ancient Art Curator rounds: Ancient Art Curator visit attempted; however there appeared to be three visitors with Patient. No Ancient Art Curator visit completed.
--- NOTE | 2022-05-10 16:10 | NUR ---
PATIENT'S FAMILY OUT AT THE DESK FREQUENTLY TODAY. FAMILY NOW AT DESK STATING PATIENT REPORTS HE "CAN'T BREATH". 02 SATS OF 97% ON RA. HR IN 60'S ON TELE. UPON ASSESSMENT PATIENT SEEMS TO BE HAVING ANXIETY, FAMILY AGREES. PATIENT REPEATS HIMSELF OVER AND OVER WHEN HE GETS FIXATED ON SOMETHING. PATIENT WANTING PAIN PILLS BUT IS NEARLY 2 HOURS EARLY. NURSING OFFERED SEVERAL OTHER PAIN RELIEVING OPTIONS SUCH ICE OR HEAT, REPOSITIONING, OR WARM BLANKET. PATIENT REFUSING EVERYTHING OFFERED BY NURSING OF FAMILY. PROVIDER NOTIFIED. PROVIDER CONFIRMED PATIENT HAD A SIMILAR EPISODE YESTERDAY WITH A COMPLETE WORK-UP THAT WAS NEGATIVE. PATIENT IS ALSO STRUGGLING WITH SOFT B/P AND BRADYCARDIA LIMITING OPTIONS FOR ANXIETY MEDS. PATIENT ALSO HAS ELEVATED RENAL LABS. NO NEW ORDERS GIVEN BY PROVIDER. PATIENT ONLY ABLE TO GET SCHEDULED BACLOFEN TILL ITS TIME FOR NARCOTICS AGAIN.
--- NOTE | 2022-05-10 16:30 | NUR ---
FAMILY LEAVING FOR A WHILE.
--- NOTE | 2022-05-10 20:17 | NUR ---
Patient alert and oriented x2, knows his date of and knows he is in the hospital, head to toe assessment done at this time, see shift assessment, HS meds crushed with apple sauce without any difficulty, SCD's and MARIANNE's on, needs attended, denies further needs, call light and personal items within reach, will continue to monitor.
--- NOTE | 2022-05-10 23:04 | NUR ---
Patient repositioned to his right side.
--- NOTE | 2022-05-10 23:29 | NUR ---
Patient called with complaints of pain, he verbalized "I'm hurting everywhere", this nurse went into his romm and he said "You are killing me", I'm hurting", oxycodone given at this time to alleviate his pain, will continue to monitor.
[2022-05-11 03:42] VITALS: BP 121/74; PULSE 67; TEMP 99.1
--- NOTE | 2022-05-11 04:24 | NUR ---
Repositioned patient to his left side, took some sips of water at this time.
[2022-05-11 06:31] LABS: CREATININE, serum 2.96 mg/dL (0.72-1.25); POTASSIUM 3.6 mmol/L (3.5-4.5)
[2022-05-11 07:42] VITALS: BP 124/63; PULSE 85; TEMP 98.3
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
[2022-05-11 08:26] LABS: INR 1.8 (0.8-3.0); PROTHROMBIN TIME 20.3 SECONDS (9.7-12.8)
[2022-05-11 12:18] VITALS: BP 112/57; PULSE 60; TEMP 97.9
--- NOTE | 2022-05-11 13:43 | NUR ---
PATIENT UNABLE TO FOLLOW VERBAL COMMANDS THE LAST TWO DAYS WITH EDUCATION/USE OF I.S. PATIENT REFUSES
[2022-05-11 15:04] VITALS: BP 105/60; PULSE 58; TEMP 97.5
--- NOTE | 2022-05-11 17:50 | NUR ---
PRESSURE ULCERS, SEE SHIFT ASSESSMENT, DSG'S CHANGED.
[2022-05-11 19:09] VITALS: BP 106/82; PULSE 63; TEMP 98.7
[2022-05-11 23:41] VITALS: BP 100/60; PULSE 60; TEMP 97.5
[2022-05-12] VITALS (7 sets, daily range): BP systolic 100–131; BP diastolic 65–104; PULSE 61–73; TEMP 97.2–97.8
[2022-05-12 06:24] LABS: BASO % 0.2 % (0.0-2.0); EOS # 0.3 K/mm3 (0.0-0.7); EOS % 2.1 % (0.0-4.0); GRAN # 10.8 K/mm3 (1.4-6.5); LYMPH # 1.1 K/mm3 (1.2-3.4); LYMPH % 8.3 % (20.0-51.0); MEAN CELL VOLUME 77 fl (80.0-100.0); MEAN CORPUSCULAR HGB CONC 30 g/dl (33.0-37.0); MEAN PLATELET VOLUME 10.6 fl (7.4-10.4); MONO # 0.7 K/mm3 (0.1-0.6); MONO % 5.4 % (1.7-9.3); PLATELET COUNT 233 K/mm3 (130-400); RED BLOOD COUNT 3.37 M/mm3 (4.20-5.60); REDCELL DISTRIBUTION WIDTH-CV 16.7 % (11.5-14.5)
--- NOTE | 2022-05-12 06:27 | NUR ---
THE PATIENT HAD A VERY EVENTFUL NIGHT. THE PATIENTS VITAL SIGNS WERE STABLE AND THE PATIENT WAS STABLE OVERNIGHT. PT REMAINED ALERT AND ORIENTED TO SELF ALL NIGHT. HOWEVER PATIENT HAD SEVERAL PERIODS OF CONFUSION AND USED THE CALL LIGHT HUNDREDS AND HUNDREDS OF TIMES OVERNIGHT CALLING OUT FOR VARIOUS THINGS. SUCH , HIS HEAD HURTING EVEN THOUGH JUST RECEIVING PAIN MEDICATION AND REFUSING TO ALLOW THE MEDICATION TIME TO KICK IN, PILLOWS BEING FLUFFED WHEN THEY WERE JUST FLUFFED, OSTOMY BACK TO BE EMPTIED WHEN IT JUST HAD PREVIOUSLY BEEN EMPTIED, UNABLE TO BREATH WHEN ASSESSMENT WAS NEGATIVE OXYGEN SATURATIONS 100% ON ROOM AIR AND THE PATIENT TALKING CLEARLY WITHOUT STRUGGLING AT ALL. PT REFUSED REDIRECTION AND STILL CONTINUED TO PUSHED THE CALL LIGHT REPEATEDLY EVEN WHEN TOLD THAT SOMEONE WOULD BE IN THE ROOM SHORTLY THE PATIENT WOULD PUSH THE CALL LIGHT SEVERAL TIMES IN A MINUTE. PT WAS VERY DIFFICULT TO IMPOSSIBLE TO REDIRECT. PT RECEIVED PAIN MEDICATION X2. MEDICATIONS ADMINISTERED PER APR. FLUIDS OFFERED SEVERAL TIMES THROUGHOUT THE NIGHT, PT REFUSED FOOD OR SNACKS. PT REPOSITIONED WHEN PATIENT ALLOWED. CALL LIGHT ALWAYS WITHIN REACH.
[2022-05-12 06:30] LABS: HEMATOCRIT 26.1 % (42.0-52.0); HEMOGLOBIN 7.7 g/dl (13.5-18.0); MEAN CORPUSCULAR HEMOGLOBIN 23 pg (27-31)
[2022-05-12 06:41] LABS: INR 2.2 (0.8-3.0)
[2022-05-12 06:43] LABS: CALCIUM 8.1 mg/dL (8.4-10.2); CREATININE, serum 2.56 mg/dL (0.72-1.25); MAGNESIUM 1.9 mg/dL (1.6-2.6); POTASSIUM 3.7 mmol/L (3.5-4.5)
--- NOTE | 2022-05-12 11:46 | NUR ---
PATIENT ALERT TO SELF. PICC TO LEFT UPPER ARM, FLUSHES WITH GOOD BLOOD RETURN, D5 1/2 NS RUNNING AT 75ML/HOUR. SKIN ASSESSMENT-PLEASE READ ASSESSMENT. DRESSING CHANGED ORDERED. PATIENT REPORTS PAIN 10/10, REQUESTS PAIN MEDICATION. PATIENT REPORTS HEADACHE. ATIVAN 0.5MG ORDERED. SEEMS TO HAVE HELPED PATIENT CALM DOWN. SCHEDULED MEDS ADMINISTERED. PATIENT RESTING IN BED, CALL LIGHT IN REACH.
--- NOTE | 2022-05-12 15:15 | NUR ---
Telehealth visit conducted with Dr. Irwin No, Infectious Disease. Patient consented to visit. Patient's nurse present. Lock And Dam Equipment Repairer initiated without any difficulties during exam. All questions were answered by Dr. No.
--- NOTE | 2022-05-12 16:23 | NUR ---
Housing Inspectors spoke with Casise, Clinical Liason for [facility] (cell#[phone]). Cassie requested revenue codes, which FLAKO obtained and faxed to her. No beds available today and FLAKO will continue to follow up daily. FLAKO updated patient's , Ayana.
[2022-05-13 00:51] VITALS: BP 109/64; PULSE 78; TEMP 98.1
[2022-05-13 03:57] VITALS: BP 98/71; PULSE 73; TEMP 97.8
[2022-05-13 07:17] LABS: INR 2.5 (0.8-3.0); PROTHROMBIN TIME 28.5 SECONDS (9.7-12.8)
[2022-05-13 09:01] VITALS: BP 104/52; PULSE 72
[2022-05-13 11:34] VITALS: BP 117/70; PULSE 66
--- NOTE | 2022-05-13 11:55 | NUR ---
Telehealth visit conducted with Dr. Irwin No, Infectious Disease. Patient consented to visit. Patients present. Plant And Maintenance Technician initiated without any difficulties during exam. All questions were answered by Dr. No.
[2022-05-13 15:02] VITALS: BP 117/84; PULSE 73
--- NOTE | 2022-05-13 16:12 | NUR ---
Geotechnical Intern faxed clinical updates to Cassie at [place]. Cassie is reviewing IV antibiotics needs and will follow up with [facility] on a bed.
[2022-05-13 19:15] VITALS: BP 127/78; PULSE 68; TEMP 98.8
[2022-05-14 00:01] VITALS: BP 141/85; PULSE 72; TEMP 98.7
--- NOTE | 2022-05-14 03:57 | NUR ---
OVERNIGHT PATIENT CALLING OUT FOR HELP SEVERAL TIMES WHEN RN WOULD BE AT BEDSIDE PATIENT WOULD REQUEST TO HAVE THE WANDA GRIFTH SHOW PUT ON THE TV WHEN THE CHANNEL WOULD BE TURNED ON THAT CHANNEL THE PATIENT WOULD CHANGE THE CHANNEL THEN CALL ONCE AGAIN AND ASK FOR THE CHANNEL ONCE MORE. PT WOULD ALSO CALL OUT ASKING FOR THINGS WHEN RN WOULD BE AT BEDSIDE PATIENT WOULD JUST REPEAT HELP ME OVER AND OVER AGAIN. BUT NOT ANSWER WHEN ASKED WHAT HE NEEDED HELP PT ALERT AND ORIENTED TO SELF WHICH HE HAS REMAINED THE LAST 3 DAYS THAT THIS RN HAS TAKEN CARE OF THIS PATIENT. AT 2330 RN DOING ROUNDS TO HAVE FOUND PATIENT HAD TAKEN OFF CLOTHES. RN PUT CLOTHES BACK ON AND COVER PATIENT UP WHEN ASKED WHY THE PATIENT TOOK OF HIS CLOTHES THE PATIENT JUST REPEATED HELP ME AND DONT DO THIS TO ME. AT 0015 RN DOING ROUNDS ONCE MORE TO FIND THAT THE PATIENT HAD ONCE MORE TAKEN OFF GOWN, THROWN HIS BLANKETS AND PILLOWS ALL OVER THE FLOOR AND RIPPED HIS OSTOMY BAG OFF AND HAD BEEN PLAYING IN HIS STOOL. RN AND PCT CLEANED PATIENT UP AND PROVIDED A SHOWER CAP, CHANGED ALL BEDDING AT THIS TIME, APPLIED A NEW APPLIANCE TO PATIENT OSTOMY. PT WAS ABLE TO GET ABOUT 2 HOURS OF SOLID UN INTERUPTED SLEEP, BUT THE PATIENT DID REMAIN AWAKE THE MAJORITY OF THE NIGHT TALKING TO HIMSELF.
[2022-05-14 04:38] VITALS: BP 114/68; PULSE 65; TEMP 98
[2022-05-14 07:00] VITALS: BP 120/73; PULSE 68
[2022-05-14 07:02] LABS: BASO % 0.2 % (0.0-2.0); EOS # 0.1 K/mm3 (0.0-0.7); EOS % 0.7 % (0.0-4.0); GRAN # 13.3 K/mm3 (1.4-6.5); GRAN % 87.3 % (42.2-75.2); LYMPH % 6.7 % (20.0-51.0); MEAN CELL VOLUME 76 fl (80.0-100.0); MEAN CORPUSCULAR HGB CONC 30 g/dl (33.0-37.0); MEAN PLATELET VOLUME 11.7 fl (7.4-10.4); MONO # 0.6 K/mm3 (0.1-0.6); MONO % 4.2 % (1.7-9.3); PLATELET COUNT 213 K/mm3 (130-400); RED BLOOD COUNT 3.45 M/mm3 (4.20-5.60); REDCELL DISTRIBUTION WIDTH-CV 16.7 % (11.5-14.5)
[2022-05-14 07:09] LABS: INR 2.5 (0.8-3.0); PROTHROMBIN TIME 28.4 SECONDS (9.7-12.8)
[2022-05-14 07:13] LABS: HEMATOCRIT 26.3 % (42.0-52.0); HEMOGLOBIN 7.8 g/dl (13.5-18.0); MEAN CORPUSCULAR HEMOGLOBIN 23 pg (27-31)
[2022-05-14 07:23] LABS: ALBUMIN 1.9 gm/dL (3.4-4.8); CREATININE, serum 1.85 mg/dL (0.72-1.25); MAGNESIUM 1.7 mg/dL (1.6-2.6); PHOSPHOROUS 3.7 mg/dL (2.3-4.7); POTASSIUM 3.5 mmol/L (3.5-4.5)
[2022-05-14 07:44] LABS: CREATININE, serum 1.85 mg/dL (0.72-1.25); FRACTIONAL EXCRETION OF NA+ 2.93 %
--- NOTE | 2022-05-14 08:31 | NUR ---
0700 SHIFT ASSESSMENT COMPLETE. PATIENT IS ALERT AND NOT ORITENTED X2 PATIENT IS REPEATING "PLEASE HELP ME. PLEASE GET ME OUT OF HERE. PLEASE I WONT DO THIS AGAIN IF YOU GET ME OUT OF HERE. I AM GOING TO ." VITALS ARE WITH IN NORMAL RANGE, INVASIVE LINES SHOW NO REDNESS, SWELLING, OR PHLEBITIS. D5 1/2 NS HANGING AT 75mL/hr. SKIN IS DRY, PALE AND NO NEW SIGNS OF ALTERED SKIN INTEGRITY. CRACKLES IN LEFT LOWER LOBE. PATIENT IS LYING COMFORTABLY IN BED AND ORIENTED TO CALL LIGHT.
[2022-05-14 11:25] VITALS: BP 121/71; PULSE 96
--- NOTE | 2022-05-14 14:57 | NUR ---
Cassie [facility] expressed concerns about discharge planning from their standpoint due to length of IV antibiotics. FLAKO provided contact information for [facility] for [facility] to reach out to to assist with discharge planning. FLAKO also faxed med and demographic info to [facility] for reference. Patient's , Ayana is agreeable to this and advised they have done home antibiotics before.
[2022-05-14] MEDS ORDERED: NEURONTIN100 MG/CAP PO (15:35)
[2022-05-14 16:00] VITALS: BP 134/86; PULSE 65
--- NOTE | 2022-05-14 16:03 | NUR ---
farmworker [employer] farm spoke with Cassie at [facility] and requested an acceptance this date as it has been 6 days since referral given. Worker met with , Ayana, and provided support due to the difficutly with [facility]'s referral. Worker advised that we will give the referral to [facility] and work for an acceptance tomorrow. Worker spoke with Dr Buchanan regarding the above information.
--- NOTE | 2022-05-14 16:31 | NUR ---
Telehealth visit conducted with Dr. Irwin No, Infectious Disease. Patient consented to visit. Patient's family present. Fire Extinguisher Installer initiated without any difficulties during exam. All questions were answered by Dr. No.
--- NOTE | 2022-05-14 19:10 | NUR ---
RECEIVED CHANGE OF SHIFT REPORT FROM DAY SHIFT RN.
[2022-05-14 20:05] VITALS: BP 137/86; PULSE 55; TEMP 97.6
[2022-05-15 00:22] VITALS: BP 117/85; PULSE 59
--- NOTE | 2022-05-15 02:50 | NUR ---
UNABLE TO BRING TEMP ABOVE 95.1 WITH WARM BLANKETS, PUT EPIFANIO HUGGER ON PT, PATIENT AWAKE AND TALKING WITH STAFF, PATIENT STATING "HELP ME" WHILE PUSHING OFF EPIFANIO HUGGER COVER. ALSO COMPLAINS OF HIS KNEE HURTING. SEE MAR FOR PAIN MEDS GIVEN.
[2022-05-15 04:00] VITALS: BP 105/61; PULSE 55; TEMP 96.1
[2022-05-15 05:01] VITALS: BP 99/54; PULSE 84; TEMP 95.5
[2022-05-15 07:00] LABS: BASO % 0.1 % (0.0-2.0); EOS # 0.1 K/mm3 (0.0-0.7); EOS % 0.9 % (0.0-4.0); GRAN # 9.1 K/mm3 (1.4-6.5); GRAN % 83.4 % (42.2-75.2); LYMPH # 0.9 K/mm3 (1.2-3.4); LYMPH % 8.3 % (20.0-51.0); MEAN CELL VOLUME 74 fl (80.0-100.0); MEAN CORPUSCULAR HGB CONC 31 g/dl (33.0-37.0); MEAN PLATELET VOLUME 11.3 fl (7.4-10.4); MONO # 0.7 K/mm3 (0.1-0.6); MONO % 6.3 % (1.7-9.3); PLATELET COUNT 197 K/mm3 (130-400); REDCELL DISTRIBUTION WIDTH-CV 16.6 % (11.5-14.5)
[2022-05-15 07:03] LABS: HEMATOCRIT 25.2 % (42.0-52.0); HEMOGLOBIN 7.9 g/dl (13.5-18.0); MEAN CORPUSCULAR HEMOGLOBIN 23 pg (27-31)
[2022-05-15 07:04] LABS: INR 2.7 (0.8-3.0)
[2022-05-15 07:18] LABS: ALBUMIN 1.9 gm/dL (3.4-4.8); CREATININE, serum 1.53 mg/dL (0.72-1.25); MAGNESIUM 1.6 mg/dL (1.6-2.6); PHOSPHOROUS 3.7 mg/dL (2.3-4.7); POTASSIUM 3.5 mmol/L (3.5-4.5)
--- NOTE | 2022-05-15 07:42 | NUR ---
CHANGE OF SHIFT REPORT GIVEN TO DAY SHIFT RNÁNGEL.
[2022-05-15 08:00] VITALS: TEMP 97.4
[2022-05-15 12:32] VITALS: BP 118/67; PULSE 74; TEMP 98
--- NOTE | 2022-05-15 13:14 | NUR ---
Pt. transfering to [facility]. Transport has arrived. Pt. packet given to EMS. Report called.
--- NOTE | 2022-05-15 13:24 | NUR ---
Railroad Auditor notified by Cassie cuello [facility] that they can accept today. FLAKO also notified by Nicole at [facility] that they can also accept today. Howard at [facility] can clinically accept, however will not have a bed available today. FLAKO updated patient's , Ayana who after speaking with Nicole at [facility], decided on discharge to [facility]. FLAKO contacted Nicole at [facility] and faxed discharge ordres. FLAKO also set transport time for 1300 with [facility]. Ayana agreeable with transport time. Discharge Plan: [facility] today
== END 2022-05-15 13:00 | DRG 871 ==
LOC: SURG 17:59
PROVIDERS: Internal Medicine; Internal Medicine Nephrology; Nurse Practitioner Family; Orthopaedic Surgery; Physician Assistant; Registered Nurse; Student in an Organized Health Care Education/Training Program; ADMIT Internal Medicine
PROC: 02HV33Z Insertion of Infusion Device into Superior Vena Cava, Percutaneous Approach (ICD-10-PCS; 2022-05-01)
PROC: 0S9C4ZX Drainage of Right Knee Joint, Percutaneous Endoscopic Approach, Diagnostic (ICD-10-PCS; principal; 2022-05-01 15:00)
PROC: 02HV33Z Insertion of Infusion Device into Superior Vena Cava, Percutaneous Approach (ICD-10-PCS; 2022-05-02)
DX: A41.9 Sepsis, unspecified organism (principal); G82.50 Quadriplegia, unspecified; L89.894 Pressure ulcer of other site, stage 4; L89.153 Pressure ulcer of sacral region, stage 3; G93.41 Metabolic encephalopathy; Z66 Do not resuscitate; M00.9 Pyogenic arthritis, unspecified; N39.0 Urinary tract infection, site not specified; M86.8X8 Other osteomyelitis, other site; E87.0 Hyperosmolality and hypernatremia; N17.9 Acute kidney failure, unspecified; M25.461 Effusion, right knee; I10 Essential (primary) hypertension; N31.9 Neuromuscular dysfunction of bladder, unspecified; G89.29 Other chronic pain; M62.81 Muscle weakness (generalized); D64.9 Anemia, unspecified; B96.5 Pseudomonas (aeruginosa) (mallei) (pseudomallei) as the cause of diseases classified elsewhere; B96.89 Other specified bacterial agents as the cause of diseases classified elsewhere; E86.0 Dehydration; E87.6 Hypokalemia; I95.9 Hypotension, unspecified; E87.70 Fluid overload, unspecified; E16.2 Hypoglycemia, unspecified; L89.890 Pressure ulcer of other site, unstageable; R19.7 Diarrhea, unspecified; R51.9 Headache, unspecified; B95.62 Methicillin resistant Staphylococcus aureus infection as the cause of diseases classified elsewhere; G90.1 Familial dysautonomia [Riley-Day]; Z86.718 Personal history of other venous thrombosis and embolism; Z90.49 Acquired absence of other specified parts of digestive tract; Z79.01 Long term (current) use of anticoagulants; Z88.6 Allergy status to analgesic agent; Z79.899 Other long term (current) drug therapy; Z93.3 Colostomy status; Z23 Encounter for immunization; Z88.8 Allergy status to other drugs, medicaments and biological substances
CPT/HCPCS: A9284; C1751; C1892; C9113; J0295; J0360; J0692; J0878; J1100; J1170; J1940; J2060; J2185; J2405; J2543; J2704; J3010; J3370; J3430; J3475; J3480; J7040; J7050; J7120